=== PATIENT | male | born 1940 | race Caucasian/White ===

== ENCOUNTER 2017-09-07 07:53 | Emergency (ER) | payer OTHER, BC ==
[2017-09-07] MEDS ORDERED: LIDOCAINE 2% JELLY 20 ML (UROJECT) ONE (08:42)
[2017-09-07] MEDS ORDERED: TAMSULOSIN HCL 0.4 MG CAP PO ONE (08:45)
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
[2017-09-07 10:01] VITALS: BP 136/78
== END 2017-09-07 09:59 | disposition home or self-care (01) ==
LOC: CED 07:53
DX: N41.0 Acute prostatitis (principal)
CPT/HCPCS: 80048-PO